=== PATIENT | male | born 1955 | race Caucasian/White ===

== ENCOUNTER → 2018-04-29 | Outpatient (CLI) | payer BC, MEDICARE, OTHER ==
[2018-04-30 07:38] LABS: BILIRUBIN,TOTAL 0.2 MG/DL (0.1-1.0); CALCIUM 9.1 MG/DL (8.5-10.1); CREATININE SERUM 8.54 MG/DL (0.60-1.30); POTASSIUM 4.4 MMOL/L (3.6-5.0)
[2018-04-30 07:39] LABS: ALBUMIN 3.8 GM/DL (3.2-4.5)
[2018-04-30 07:42] LABS: HEMATOCRIT 42 % (40-54); HEMOGLOBIN 13.3 G/DL (13.3-17.7); MEAN CORPUSCULAR HEMOGLOBIN 31 PG (25-34); MEAN CORPUSCULAR VOLUME 98 FL (80-99); WHITE BLOOD COUNT 12.6 10^3/uL (4.3-11.0)
[2018-04-30 07:43] LABS: BAND NEUTROPHILS 4 %; BASOPHILS # (AUTO) 0.1 10^3/uL (0.0-0.1); BASOPHILS % (AUTO) 0 % (0-10); BASOPHILS % (MANUAL) 0 %; EOSINOPHILS # (AUTO) 0.1 10^3/uL (0.0-0.3); EOSINOPHILS % (AUTO) 1 % (0-10); EOSINOPHILS % (MANUAL) 0 %; LYMPHOCYTES # (AUTO) 1.1 X 10^3 (1.0-4.0); LYMPHOCYTES % (AUTO) 9 % (12-44); LYMPHOCYTES % (MANUAL) 13 %; MEAN CORPUSCULAR HGB CONC 31 G/DL (32-36); MEAN PLATELET VOLUME 9.1 FL (7.4-10.4); MONOCYTES # (AUTO) 1.1 X 10^3 (0.0-1.0); MONOCYTES % (AUTO) 9 % (0-12); MONOCYTES % (MANUAL) 10 %; MYELOCYTES % 1 %; NEUTROPHILS % (AUTO) 79 % (42-75); NEUTROPHILS % (MANUAL) 72 %; PLATELET COUNT 264 10^3/uL (130-400); RBC MORPH NORMAL; RED CELL DISTRIBUTION WIDTH 14.5 % (10.0-14.5)
== END ==
LOC: LAB 17:02
PROVIDERS: ATTEND Urology
DX: D86.0 Sarcoidosis of lung (principal)
CPT/HCPCS: 36415; 80053; 84436; 84443; 85007; 85027

== ENCOUNTER 2018-07-04 22:05 | Emergency (ER) | payer MEDICARE ==
[~2018-07-04] VITALS: Ht 172.7 cm; Wt 50.3 kg
--- NOTE | 2018-07-04 22:25 | ED General ---
General Chief Complaint: General Problems/Pain Stated Complaint: LEG PAIN Source of Information: Patient, EMS, Spouse History of Present Illness Date Seen by Provider: Jul 04, 2018 Time Seen by Provider: 22:25 Initial Comments 63-year-old male presenting by EMS from home. He has been feeling sick today and having increased leg pain. He has chronic leg pain but feels that it was worse today. He also has been having palpitations especially whenever he tries to move around. He's been feeling more short of breath today. He has been doing peritoneal dialysis and typically does that 16 hours a day. He has not been able to complete that today because he was feeling so bad he called EMS. He also feels more nauseated than usual. All of his health care providers are primarily out of the [facility]. He denies having any fever or chills. He denies having any chest pains with the palpitations. Allergies and Home Medications Allergies Coded Allergies: doxycycline (Verified Allergy, Unknown, 07/04/18) levofloxacin (Verified Allergy, Unknown, 07/04/18) Patient Home Medication List Home Medication List Reviewed: Yes Review of Systems Review of Systems Constitutional: No chills, No fever; malaise, weakness EENTM: no symptoms reported Respiratory: short of breath (more short of breath than normal.) Cardiovascular: see HPI; No chest pain, No edema; palpitations Gastrointestinal: No abdominal pain; nausea, vomiting Genitourinary: no symptoms reported (on dialysis so he doesn't make hardly any urine) Musculoskeletal: see HPI, muscle pain (chronic bilateral leg pain) Skin: no symptoms reported Psychiatric/Neurological: Anxiety Past Cmwewmq-Qqgtfu-Flbsiq Hx Past Med/Social Hx: Reviewed Nursing Past Med/Soc Hx Patient Social History Alcohol Use: Denies Use Recreational Drug Use: No Smoking Status: Never a Smoker 2nd Hand Smoke Exposure: No Recent Foreign Travel: No Contact w/Someone Who Travel: No Physical Abuse: No Sexual Abuse: No Mistreated: No Fear: No Physical Exam Vital Signs Vital Signs - First Documented 07/04/18 07/04/18 22:23 23:05 Temp 98.3 Pulse 125 B/P (MAP) 126/72 (90) Pulse Ox 0 O2 Delivery Room Air O2 Flow Rate 2.50 Capillary Refill : Height, Weight, BMI Height: '" Weight: lbs. oz. kg; BMI Method: General Appearance: Anxious, Moderate Distress HEENT: PERRL/EOMI, Pharynx Normal Neck: Non Tender, Supple Respiratory: Chest Non Tender, Decreased Breath Sounds, Rales (in the bases) Cardiovascular: Irregularly Irregular, Tachycardia Gastrointestinal: Normal Bowel Sounds, No Pulsatile Mass, Non Tender, Soft Rectal: Deferred Extremity: Normal Range of Motion, No Pedal Edema, Slow Capillary Refill, Other (tenderness to bilateral lower extremities) Neurologic/Psychiatric: Alert, Oriented x3 Skin: Cool; No Cyanosis, No Diaphoresis, No Erythema, No Mottled; Pallor Focused Exam Sepsis Stage: Sepsis Possible Source: Other (Pulmonary with cough and SOA, intra-abdominal with chronic peritoneal dialysis) Lactate Level 07/05/18 00:25: Lactic Acid Level 2.78*H Time of Focused Exam: 00:20 Respiratory: Chest Non Tender, No Accessory Muscle Use, No Respiratory Distress , Crackles, Decreased Breath Sounds Cardiovascular: Tachycardia Capillary Refill: Less Than 3 Seconds Peripheral Pulses: 1+ Radial Pulses (R), 1+ Radial Pulses (L) Skin: pallor Lactic Acid Level Laboratory Tests Test 07/05/18 00:25 Lactic Acid Level 2.78 MMOL/L (0.50-2.00) *H Within 3hrs of presentation: Admin fluids, Admin ABX, Blood cultures prior to ABX's, Focus exam, Lactate level, Other (due to dialysis pt and renal failure will give 500 mL fluid bolus x 2) Progress/Results/Core Measures Suspected Sepsis Recent Fever Within 48 Hours: No Infection Criteria Present: Suspected New Infection New/Unexplained Altered Menta: No Within 3hrs of presentation: Admin fluids, Admin ABX, Blood cultures prior to ABX's, Lactate level SIRS Temperature: Pulse: Respiratory Rate: Laboratory Tests 07/04/18 23:00: White Blood Count 32.4*H Blood Pressure / Mean: 07/05/18 00:25: Lactic Acid Level 2.78*H Laboratory Tests 07/04/18 23:00: Creatinine 7.19H, INR Comment 1.2, Platelet Count 191, Total Bilirubin 0.7 Results/Orders Lab Results Laboratory Tests Test 07/04/18 23:00 07/05/18 00:25 Range/Units White Blood Count 32.4 *H 4.3-11.0 10^3/uL Red Blood Count 4.37 4.35-5.85 10^6/uL Hemoglobin 13.3 13.3-17.7 G/DL Hematocrit 41 40-54 % Mean Corpuscular Volume 93 80-99 FL Mean Corpuscular Hemoglobin 30 25-34 PG Mean Corpuscular Hemoglobin Concent 33 32-36 G/DL Red Cell Distribution Width 14.4 10.0-14.5 % Platelet Count 191 130-400 10^3/uL Mean Platelet Volume 9.1 7.4-10.4 FL Neutrophils (%) (Auto) 88 H 42-75 % Lymphocytes (%) (Auto) 5 L 12-44 % Monocytes (%) (Auto) 7 0-12 % Eosinophils (%) (Auto) 0 0-10 % Basophils (%) (Auto) 0 0-10 % Neutrophils # (Auto) 28.5 H 1.8-7.8 X 10^3 Lymphocytes # (Auto) 1.5 1.0-4.0 X 10^3 Monocytes # (Auto) 2.3 H 0.0-1.0 X 10^3 Eosinophils # (Auto) 0.0 0.0-0.3 10^3/uL Basophils # (Auto) 0.1 0.0-0.1 10^3/uL Neutrophils % (Manual) 75 % Lymphocytes % (Manual) 5 % Monocytes % (Manual) 6 % Eosinophils % (Manual) 1 % Metamyelocytes % 2 % Myelocytes % 2 % Band Neutrophils 9 % Platelet Estimate ADEQUATE Prothrombin Time 15.7 H 12.2-14.7 SEC INR Comment 1.2 0.8-1.4 Activated Partial Thromboplast Time 29 24-35 SEC Sodium Level 132 L 135-145 MMOL/L Potassium Level 4.3 3.6-5.0 MMOL/L Chloride Level 82 L 98-107 MMOL/L Carbon Dioxide Level 20 L 21-32 MMOL/L Anion Gap 30 H 5-14 MMOL/L Blood Urea Nitrogen 71 H 7-18 MG/DL Creatinine 7.19 H 0.60-1.30 MG/DL Estimat Glomerular Filtration Rate 8 BUN/Creatinine Ratio 10 Glucose Level 90 70-105 MG/DL Calcium Level 10.2 H 8.5-10.1 MG/DL Corrected Calcium 10.7 H 8.5-10.1 MG/DL Magnesium Level 1.8 1.8-2.4 MG/DL Total Bilirubin 0.7 0.1-1.0 MG/DL Aspartate Amino Transf (AST/SGOT) 31 5-34 U/L Alanine Aminotransferase (ALT/SGPT) 42 0-55 U/L Alkaline Phosphatase 132 40-136 U/L Troponin T 394 *H <=15 NG/L Pro-B-Type Natriuretic Peptide 44582.0 H <75.0 PG/ML Total Protein 7.2 6.4-8.2 GM/DL Albumin 3.4 3.2-4.5 GM/DL Lipase 17 8-78 U/L Arterial Blood Partial Pressure CO2 59 H 35-45 MMHG Arterial Blood Partial Pressure O2 12 *L 79-93 MMHG Arterial Blood HCO3 32 H 23-27 MMOL/L Arterial Blood Oxygen Saturation 11 L 94-100 % Arterial Blood Base Excess 4.5 H -2.5-2.5 MMOL/L Blood Gas Inspired Oxygen NASAL CAN Lactic Acid Level 2.78 *H 0.50-2.00 MMOL/L My Orders Orders - KRISTOPHER TORRES MD Cbc With Automated Diff (07/04/18 22:46) Magnesium (07/04/18 22:46) Chest 1 View Ap/Pa Only (07/04/18 22:46) Ekg Tracing (07/04/18 22:46) Comprehensive Metabolic Panel (07/04/18 22:46) Protime With Inr (07/04/18 22:46) Partial Thromboplastin Time (07/04/18 22:46) O2 (07/04/18 22:46) Monitor-Rhythm Ecg Trace Only (07/04/18 22:46) Ed Iv/Invasive Line Start (07/04/18 22:46) Lipase (07/04/18 22:46) Probnp Fs (07/04/18 22:46) Amiodarone For Bolus (Cordarone Bolus) (07/04/18 23:00) Ns Iv 500 Ml (Sodium Chloride 0.9%) (07/04/18 22:46) Ondansetron Injection (Zofran Injectio (07/04/18 23:00) Arterial Blood Gas (07/04/18 22:52) Manual Differential (07/04/18 23:00) Blood Culture (07/05/18 00:04) Lactic Acid Analyzer (07/05/18 00:04) Troponin T (07/05/18 00:04) Oxycodone Immediate Rel Tablet (Oxyir Ta (07/05/18 00:30) Capillary Blood Gas (07/05/18 00:21) Ns Iv 500 Ml (Sodium Chloride 0.9%) (07/05/18 00:30) Amiodarone Injection (Cordarone Injectio (07/05/18 00:30) Vancomycin Injection (Vancomycin Injecti (07/05/18 00:30) Vancomycin Injection (Vancomycin Injecti (07/05/18 00:35) Ns (Ivpb) (Sodium Chloride 0.9%) (07/05/18 00:35) Medications Given in ED Current Medications Medications Dose Ordered Sig/Nelly Route Start Time Stop Time Status Last Admin Dose Admin Amiodarone HCl 150 mg/Dextrose 103 ml @ 600 mls/hr ONCE ONCE IV 07/04/18 23:00 07/04/18 23:10 DC 07/04/18 23:14 600 MLS/HR Ondansetron HCl 4 mg ONCE ONCE IVP 07/04/18 23:00 07/04/18 23:01 DC 07/04/18 23:14 4 MG Oxycodone HCl 5 mg ONCE ONCE PO 07/05/18 00:30 07/05/18 00:31 DC 07/05/18 00:24 5 MG Vital Signs/I&O 07/04/18 07/04/18 22:23 23:05 Temp 98.3 Pulse 125 B/P (MAP) 126/72 (90) Pulse Ox 0 O2 Delivery Room Air Nasal Cannula O2 Flow Rate 2.50 Capillary Refill : Progress Note #1: Time: 23:00 Progress Note Check labs and chest x-ray as well as electrocardiogram. Will give him a 500 ML normal saline bolus. Since his heart rate seems to be going in and out of A. fib with RVR and at times just tonight sinus tachycardia see how he responds to the IV fluid bolus of 500 ML's normal saline but will also give him a loading dose of amiodarone. Since he has chronic hypotension will avoid blood pressure lowering medications for now. Progress Note #2: Time: 00:20 Progress Note Discussed with his transfer center and initiated the process to have the patient transferred. Reviewed the initial results with the patient and family. His white blood cell count is elevated over 32,000 and he has a left shift. Concerning for infection in addition to his atrial fibrillation with RVR and sinus tachycardia. He is fluctuating between the two rhythms. The IV fluid bolus and amiodarone had helped with his atrial fibrillation with RVR. He now is not shooting to the 170-180 range. Will add on blood cultures and a lactic acid. We'll also plan on trying to obtain a blood gas to see if the oxygen saturation could be obtained. His chest x-ray showed diffuse pulmonary edema consistent with his renal failure and fluid overload. It certainly is possible that he could have an infiltrate hidden within normal that on his chest x-ray. He was not having particular abdominal tenderness to consider peritonitis but that certainly is potential diagnosis as well since he has a peritoneal dialysis catheter. He did not describe having any discolored drainage or fluid from the dialysis catheter recently. He was also asking for something for the leg pain that he was experiencing. I told him with his low blood pressure I was not comfortable giving him any IV medicine but I would give him a single pain pill and he stated that in the past oxycodone had helped. Progress Note #3: Time: 00:33 Progress Note d/w Dr. Garza from ICU staff at [facility] and he accepted the patient to . He did feel the patient would need the amiodarone as a drip as well as he requested vancomycin and Zosyn for potential sepsis treatment. Progress Note #4: Time: 01:05 Progress Note Lactic acid as well as troponin T are both elevated. In light of his chronic renal failure and elevated BMP is also present his troponin was elevated. He has had no chest pain but he also has been running heart rates up into the 180s at times. His potassium and electrolytes appear stable outside of his chronic renal failure. Continue with the second 500 ML normal saline bolus. His amiodarone drip was also ordered. His vancomycin 1 g was ordered and is infusing. [facility] called back and he does have a Room in [facility] at [phone]. His blood pressure and circulation are responding to treatment. Before transfer he had BP up to 92/42. ECG Initial ECG Impression Date: Jul 04, 2018 Initial ECG Impression Time: 22:47 Initial ECG Rate: 123 Initial ECG Rhythm: S.Tach Initial ECG Comparisson: No Previous ECG Available Comment Sinus tachycardia with premature atrial and ventricular complexes. Flipped T waves in lateral leads. Heart rate of 123 bpm. NC interval 142 ms. QT interval of 302 ms and QT corrected interval of [address] elevation. No prior tracing for comparison. Diagnostic Imaging Diagonstic Imaging: Xray Plain Films/CT/US/NM/MRI: chest Comments On my review of his 1 view chest x-ray she has diffuse pulmonary interstitial edema consistent with his renal failure and heart failure. He does have cardiomegaly. There is no definite infiltrate but certainly he could have an infiltrate mixed in with his pulmonary edema. Reviewed: Reviewed by Me Critical Care Note Critical Care Total Time (minutes) 60 minutes Progress 60 minutes of critical care time was spent in direct care of the patient. This time was excluding separately billable procedures. Time was spent in obtaining history from patient and spouse, ordering tests and reviewing results, ordering interventions and reviewing response, reviewing old records, discussion with consultants, and documentation of the chart. Departure Impression Primary Impression: Atrial fibrillation with rapid ventricular response Additional Impressions: Elevated white blood cell count, unspecified Qualified Codes: D72.829 - Elevated white blood cell count, unspecified Hypotension Qualified Codes: I95.9 - Hypotension, unspecified Fluid overload, unspecified Qualified Codes: E87.70 - Fluid overload, unspecified Sepsis Qualified Codes: A41.9 - Sepsis, unspecified organism Disposition: 02 XFER SHT-TRM HOSP Condition: Stable Transfer Time Spoke to Accepting Phy: 00:05 Transfer Progress Notes Spoke with VANESA Bravo, at the transfer center for and she got me in touch with Dr Garza from the ICU at [facility]. He accepted the patient in transfer but did request the pt have blood cultures and lactic acid with his elevated WBC. He may have sepsis and requested the patient have fluids and try to get BP up around 90 to 100 since he has 100 to 120 systolic pressures in clinic visits recently at . Will give Vancomycin after blood cultures and lactic acid are drawn. if he is still here will add in zosyn as well. Transfer Facility: [facility] Method of Transfer: EMS Departure-Patient Inst. Referrals: BHUPINDER MENON MD (PCP/Family) Primary Care Physician KRISTOPHER TORRES MD Jul 04, 2018 22:25
[2018-07-04] MEDS ORDERED: NS IV 500 ML 500 ML IV STA (22:46)
[2018-07-04] MEDS ORDERED: AMIODARONE FOR BOLUS 150 MG in D5W 100 ML IVPB 100 ML IV ONE (23:00)
[2018-07-04] MEDS ORDERED: ONDANSETRON 4 MG/2 ML (SDV) Z0FRAN IVP ONE (23:00)
[2018-07-04 23:49] LABS: HEMATOCRIT 41 % (40-54); HEMOGLOBIN 13.3 G/DL (13.3-17.7); MEAN CORPUSCULAR HEMOGLOBIN 30 PG (25-34); MEAN CORPUSCULAR HGB CONC 33 G/DL (32-36); MEAN CORPUSCULAR VOLUME 93 FL (80-99); MEAN PLATELET VOLUME 9.1 FL (7.4-10.4); PLATELET COUNT 191 10^3/uL (130-400); RED CELL DISTRIBUTION WIDTH 14.4 % (10.0-14.5)
[2018-07-04 23:50] LABS: BASOPHILS % (AUTO) 0 % (0-10); EOSINOPHILS % (AUTO) 0 % (0-10); LYMPHOCYTES # (AUTO) 1.5 X 10^3 (1.0-4.0); LYMPHOCYTES % (AUTO) 5 % (12-44); MONOCYTES % (AUTO) 7 % (0-12); NEUTROPHILS % (AUTO) 88 % (42-75)
[2018-07-04 23:51] LABS: BASOPHILS # (AUTO) 0.1 10^3/uL (0.0-0.1); MONOCYTES # (AUTO) 2.3 X 10^3 (0.0-1.0)
[2018-07-04 23:53] LABS: WHITE BLOOD COUNT 32.4 10^3/uL (4.3-11.0)
[2018-07-04 23:54] LABS: NEUTROPHILS # (AUTO) 28.5 X 10^3 (1.8-7.8)
[2018-07-05 00:02] LABS: BAND NEUTROPHILS 9 %; EOSINOPHILS % (MANUAL) 1 %; LYMPHOCYTES % (MANUAL) 5 %; METAMYELOCYTES % 2 %; MONOCYTES % (MANUAL) 6 %; MYELOCYTES % 2 %; NEUTROPHILS % (MANUAL) 75 %; PLATELET ESTIMATE ADEQUATE
[2018-07-05 00:03] LABS: INR 1.2 (0.8-1.4); PROTHROMBIN TIME PATIENT 15.7 SEC (12.2-14.7)
[2018-07-05 00:05] LABS: POTASSIUM 4.3 MMOL/L (3.6-5.0)
[2018-07-05 00:06] LABS: ALBUMIN 3.4 GM/DL (3.2-4.5); BILIRUBIN,TOTAL 0.7 MG/DL (0.1-1.0); CALCIUM 10.2 MG/DL (8.5-10.1); CREATININE SERUM 7.19 MG/DL (0.60-1.30); MAGNESIUM 1.8 MG/DL (1.8-2.4); TOTAL PROTEIN 7.2 GM/DL (6.4-8.2)
[2018-07-05] MEDS ORDERED: AMIODARONE INJECTION 450 MG in D5W IV SOLUTION (EXCEL) 250 ML IV STA (00:30)
[2018-07-05] MEDS ORDERED: NS IV 500 ML 500 ML IV STA (00:30)
[2018-07-05] MEDS ORDERED: VANCOMYCIN INJECTION 1,000 MG in NS (IVPB) 250 ML IV STA (00:30)
[2018-07-05] MEDS ORDERED: NS (IVPB) 250 ML ONE (00:35)
[2018-07-05] MEDS ORDERED: VANCOMYCIN 1000 MG/VIAL ONE (00:35)
[2018-07-05 01:18] LABS: ABG BASE EXCESS 4.5 MMOL/L (-2.5-2.5); INSPIRED O2 NASAL CAN
[2018-07-05 01:19] LABS: ABG OXYGEN SATURATION 11 % (94-100); ABG PCO2 59 MMHG (35-45)
[2018-07-05 01:25] LABS: ABG PO2 12 MMHG (79-93)
[2018-07-05 01:28] VITALS: BP 92/55
--- NOTE | 2018-07-05 07:26 | Diagnostic Imaging Report ---
INDICATION: Shortness of breath and heart palpitations. COMPARISON: 04/24/2009. FINDINGS: Patchy airspace consolidations are present in the bilateral perihilar and basilar aspects of the lungs. Potential trace bilateral pleural effusions. No pneumothorax. The cardiac silhouette is enlarged. IMPRESSION: 1. Imaging features are most suggestive of congestive heart failure. However, pulmonary hemorrhage or multifocal infection could have this appearance in the appropriate setting. Dictated by: Dictated on workstation # [id number]
[2018-07-05 08:46] LABS: CAPILLARY BLOOD PH 7.34 (7.37-7.43)
== END 2018-07-05 01:28 | disposition short-term general hospital (02) ==
LOC: EDUNIT# 22:05 → ER FS 22:10
DX: I48.91 Unspecified atrial fibrillation (principal); R03.0 Elevated blood-pressure reading, without diagnosis of hypertension; A41.9 Sepsis, unspecified organism; E87.70 Fluid overload, unspecified; I95.9 Hypotension, unspecified; Z88.1 Allergy status to other antibiotic agents; Z88.8 Allergy status to other drugs, medicaments and biological substances
CPT/HCPCS: 36415; 71045; 80053; 82803; 83605; 83690; 83735; 83880; 84484; 85007; 85027; 85610; 85730; 87040; 93041

== ENCOUNTER → 2018-07-19 | Emergency (ER) | payer MEDICARE, OTHER ==
[~2018-07-19] VITALS: Ht 172.7 cm; Wt 51.7 kg
[~2018-07-19] MED LIST: ATROPINE INJECTION 1 MG/10 ML SYR (ABBOTT) INJ ONE; CATHETER FLUSH 10 ML SYR IV ONE; EPINEPHrine 0.1 MG/ML 10 ML (HOSPIRA) SYR IJ ONE; EPINEPHrine INJECTION 1 MG/ML AMP ONE; NOREPINEPHRINE 4 MG/4 ML (LEVOPHED) AMP IV ONE; NS (IVPB) 250 ML ONE; NS IV 1000 ML 1,000 ML IV PRN; NS IV 1000 ML 1,000 ML ONE; PIPERACILLIN/TAZO 4.5 GM VIAL (ZOSYN) IV ONE; PIPERACILLIN/TAZOBACTAM (BULK) 4.5 GM in NS (IVPB) 100 ML IV ONE; VANCOMYCIN INJECTION 1,000 MG in NS (IVPB) 250 ML IV SCH
[2018-07-19 03:30] VITALS: BP 103/42
[2018-07-19 04:00] VITALS: BP 63/38
[2018-07-19 04:01] LABS: WHITE BLOOD COUNT 15.9 10^3/uL (4.3-11.0)
[2018-07-19 04:02] LABS: BASOPHILS % (AUTO) 0 % (0-10); EOSINOPHILS % (AUTO) 0 % (0-10); HEMATOCRIT 33 % (40-54); HEMOGLOBIN 10.2 G/DL (13.3-17.7); LYMPHOCYTES % (AUTO) 3 % (12-44); MEAN CORPUSCULAR HEMOGLOBIN 30 PG (25-34); MEAN CORPUSCULAR HGB CONC 31 G/DL (32-36); MEAN CORPUSCULAR VOLUME 97 FL (80-99); MEAN PLATELET VOLUME 10.2 FL (7.4-10.4); MONOCYTES % (AUTO) 3 % (0-12); NEUTROPHILS # (AUTO) 13.9 X 10^3 (1.8-7.8); PLATELET COUNT 237 10^3/uL (130-400); RED CELL DISTRIBUTION WIDTH 14.6 % (10.0-14.5)
[2018-07-19 04:05] LABS: BASOPHILS # (AUTO) 0.1 10^3/uL (0.0-0.1); LYMPHOCYTES # (AUTO) 0.4 X 10^3 (1.0-4.0); MONOCYTES # (AUTO) 0.5 X 10^3 (0.0-1.0)
[2018-07-19 04:06] LABS: NEUTROPHILS % (AUTO) 94 % (42-75)
[2018-07-19 04:17] LABS: BAND NEUTROPHILS 17 %; LYMPHOCYTES % (MANUAL) 4 %; MONOCYTES % (MANUAL) 5 %; NEUTROPHILS % (MANUAL) 69 %
[2018-07-19 04:18] LABS: BASOPHILS % (MANUAL) 0 %; EOSINOPHILS % (MANUAL) 0 %; METAMYELOCYTES % 2 %; MYELOCYTES % 2 %; PLATELET ESTIMATE ADEQUATE; PROMYELOCYTES % 1 %
[2018-07-19 04:30] VITALS: BP 70/52
[2018-07-19 04:36] LABS: BUN/CREATININE RATIO 7; CARBON DIOXIDE 16 MMOL/L (21-32); CHLORIDE 79 MMOL/L (98-107); GFR ESTIMATED 10; SODIUM 123 MMOL/L (135-145)
[2018-07-19 04:37] LABS: CREATININE SERUM 5.76 MG/DL (0.60-1.30); GLUCOSE 171 MG/DL (70-105)
[2018-07-19 04:38] LABS: ALANINE AMINOTRANSFERASE 40 U/L (0-55); ALKALINE PHOSPHATASE 179 U/L (40-136); BILIRUBIN,TOTAL 0.3 MG/DL (0.1-1.0)
[2018-07-19 04:39] LABS: ALBUMIN 2.3 GM/DL (3.2-4.5); TOTAL PROTEIN 6.2 GM/DL (6.4-8.2)
[2018-07-19 04:53] LABS: MAGNESIUM 1.9 MG/DL (1.8-2.4)
[2018-07-19 05:00] VITALS: BP 65/30
--- NOTE | 2018-07-19 05:05 | ED Respiratory ---
General Chief Complaint: Respiratory Problems Stated Complaint: NAUSEA/VOMITTING Nursing Triage Note: states pt has had emesis tonight, pt is worried about aspiration, states she is worried about pt being constipated. pt discharged from Thursday and has not had a bowel movement since Source: patient, family, EMS, RN notes reviewed, old records Exam Limitations: clinical condition History of Present Illness Date Seen by Provider: July 19, 2018 Time Seen by Provider: 02:34 Initial Comments Patient presents via EMS c/ c/o vomiting this PM. Apparently some concern he might of aspirated. Does seem to be somewhat SOA @ this time. is concerned he may be constipated in that he hasn't had a BM since being discharged from [facility] on Thursday p/ being transferred there from here back on 07/06. Patient well known to this department. Is chronically ill. Patient performs peritoneal dialysis on himself daily secondary to ESRD. Timing/Duration: this evening Severity: moderate Prior Episodes/Possible Cause: frequent episodes Modifying Factors: Improves With Other (none) Associated Symptoms: denies symptoms (x/ as noted. ), shortness of breath Allergies and Home Medications Allergies Coded Allergies: doxycycline (Verified Allergy, Unknown, 07/04/18) levofloxacin (Verified Allergy, Unknown, 07/04/18) Patient Home Medication List Home Medication List Reviewed: Yes Review of Systems Review of Systems Constitutional: see HPI Respiratory: see HPI, short of breath Gastrointestinal: see HPI, vomiting All Other Systems Reviewed Negative Unless Noted: Yes (Negative excepted noted.) Past Zhyahyh-Qvmeac-Lhzdee Hx Patient Social History Alcohol Use: Denies Use Recreational Drug Use: No 2nd Hand Smoke Exposure: No Recent Foreign Travel: No Contact w/Someone Who Travel: No Recent Infectious Disease Expo: No Recent Hopitalizations: No Physical Abuse: No Sexual Abuse: No Mistreated: No Fear: No Seasonal Allergies Seasonal Allergies: No Past Medical History Surgeries: Yes Dialysis Respiratory: Yes (sarcoidosis) Cardiac: Yes Hypotension, Irregular Heartbeat, Peripheral Vascular Neurological: No Genitourinary: No Gastrointestinal: No Musculoskeletal: No Endocrine: No HEENT: No Cancer: No Psychosocial: No Integumentary: No Blood Disorders: Yes Physical Exam Vital Signs - First Documented 07/19/18 07/19/18 02:34 03:30 Temp 96.4 Pulse 110 Resp 27 B/P (MAP) 99/35 (56) Pulse Ox 94 O2 Delivery Nasal Cannula O2 Flow Rate 5.00 Capillary Refill : Greater Than 3 Seconds Height: 5'8.00" Weight: 114lbs. oz. [id number]; BMI Method:Stated General Appearance: mild distress, thin Respiratory: respiratory distress, crackles Cardiovascular: tachycardia Neurologic/Psychiatric: no motor/sensory deficits, depressed affect, other ( somewhat somnolent but does wake up and follow commands and answer ?'s appropriately. ) Skin: warm/dry Focused Exam Lactate Level 07/19/18 03:45: Lactic Acid Level 5.32*H 07/19/18 05:45: Lactic Acid Level 5.75*H Lactic Acid Level Laboratory Tests Test 07/19/18 03:45 07/19/18 05:45 Lactic Acid Level 5.32 MMOL/L (0.50-2.00) *H 5.75 MMOL/L (0.50-2.00) *H Procedures/Interventions Date of ETT Placement: July 19, 2018 Time of ETT Placement: 06:35 Intubation Method: orotracheal Positive End Tide CO2: Yes Breath Sounds after Intubation: bilateral-equal Intubation Complications: no complications Post Intubation Xray: Yes Progress/Results/Core Measures Suspected Sepsis Recent Fever Within 48 Hours: No Infection Criteria Present: None New/Unexplained Altered Menta: No Sepsis Screen: No Definite Risk SIRS Temperature:96.4 Pulse: 110 Respiratory Rate: 27 Laboratory Tests 07/19/18 03:45: White Blood Count 15.9H Blood Pressure 99 /35 Mean: 56 07/19/18 03:45: Lactic Acid Level 5.32*H 07/19/18 05:45: Lactic Acid Level 5.75*H Laboratory Tests 07/19/18 03:45: Creatinine 5.76H, Platelet Count 237, Total Bilirubin 0.3 Results/Orders Lab Results Laboratory Tests Test 07/19/18 03:45 07/19/18 05:45 Range/Units White Blood Count 15.9 H 4.3-11.0 10^3/uL Red Blood Count 3.37 L 4.35-5.85 10^6/uL Hemoglobin 10.2 L 13.3-17.7 G/DL Hematocrit 33 L 40-54 % Mean Corpuscular Volume 97 80-99 FL Mean Corpuscular Hemoglobin 30 25-34 PG Mean Corpuscular Hemoglobin Concent 31 L 32-36 G/DL Red Cell Distribution Width 14.6 H 10.0-14.5 % Platelet Count 237 130-400 10^3/uL Mean Platelet Volume 10.2 7.4-10.4 FL Neutrophils (%) (Auto) 94 H 42-75 % Lymphocytes (%) (Auto) 3 L 12-44 % Monocytes (%) (Auto) 3 0-12 % Eosinophils (%) (Auto) 0 0-10 % Basophils (%) (Auto) 0 0-10 % Neutrophils # (Auto) 13.9 H 1.8-7.8 X 10^3 Lymphocytes # (Auto) 0.4 L 1.0-4.0 X 10^3 Monocytes # (Auto) 0.5 0.0-1.0 X 10^3 Eosinophils # (Auto) 0.0 0.0-0.3 10^3/uL Basophils # (Auto) 0.1 0.0-0.1 10^3/uL Neutrophils % (Manual) 69 % Lymphocytes % (Manual) 4 % Monocytes % (Manual) 5 % Eosinophils % (Manual) 0 % Basophils % (Manual) 0 % Metamyelocytes % 2 % Myelocytes % 2 % Promyelocytes % 1 % Band Neutrophils 17 % Platelet Estimate ADEQUATE Sodium Level 123 *L 135-145 MMOL/L Potassium Level 4.0 3.6-5.0 MMOL/L Chloride Level 79 L 98-107 MMOL/L Carbon Dioxide Level 16 L 21-32 MMOL/L Anion Gap 28 H 5-14 MMOL/L Blood Urea Nitrogen 43 H 7-18 MG/DL Creatinine 5.76 H 0.60-1.30 MG/DL Estimat Glomerular Filtration Rate 10 BUN/Creatinine Ratio 7 Glucose Level 171 H 70-105 MG/DL Lactic Acid Level 5.32 *H 5.75 *H 0.50-2.00 MMOL/L Calcium Level 9.0 8.5-10.1 MG/DL Corrected Calcium 10.4 H 8.5-10.1 MG/DL Magnesium Level 1.9 1.8-2.4 MG/DL Total Bilirubin 0.3 0.1-1.0 MG/DL Aspartate Amino Transf (AST/SGOT) 31 5-34 U/L Alanine Aminotransferase (ALT/SGPT) 40 0-55 U/L Alkaline Phosphatase 179 H 40-136 U/L Troponin T 290 *H <=15 NG/L Pro-B-Type Natriuretic Peptide > 14103.0 H <75.0 PG/ML Total Protein 6.2 L 6.4-8.2 GM/DL Albumin 2.3 L 3.2-4.5 GM/DL My Orders Orders - JOHN BOYD DO Ct Abdomen/Pelvis Wo (07/19/18 02:31) Ct Chest Wo (07/19/18 02:31) Cbc With Automated Diff (07/19/18 02:31) Comprehensive Metabolic Panel (07/19/18 02:31) Probnp Fs (07/19/18 02:31) Troponin T (07/19/18 02:31) Lactic Acid Analyzer (07/19/18 02:31) Blood Culture (07/19/18 02:31) Ekg Tracing (07/19/18 02:34) Magnesium (07/19/18 02:35) Arterial Blood Gas (07/19/18 02:36) Piperacillin/Tazobactam (Bulk) (Zosyn In (07/19/18 04:00) Manual Differential (07/19/18 03:45) Ed Iv/Invasive Line Start (07/19/18 04:23) Ns Iv 1000 Ml (Sodium Chloride 0.9%) (07/19/18 04:23) Piperacillin Sodium/Tazobactam (Zosyn Vi (07/19/18 04:38) Vancomycin Injection (Vancomycin Injecti (07/19/18 05:45) Ns Iv 1000 Ml (Sodium Chloride 0.9%) (07/19/18 04:38) Norepinephrine (Levophed) (07/19/18 06:47) Ns (Ivpb) (Sodium Chloride 0.9%) (07/19/18 06:48) Epinephrine 1 Mg Injection (Adrenalin I (07/19/18 06:55) Ns (Ivpb) (Sodium Chloride 0.9%) (07/19/18 06:55) Chest 1 View Ap/Pa Only (07/19/18 07:02) Vital Signs/I&O 07/19/18 07/19/18 07/19/18 07/19/18 02:34 03:30 04:00 04:30 Temp 96.4 Pulse 110 103 102 102 Resp 27 31 33 33 B/P (MAP) 99/35 (56) 103/42 (62) 63/38 (46) 70/52 (58) Pulse Ox 94 91 89 90 O2 Delivery Nasal Cannula Nasal Cannula Nasal Cannula O2 Flow Rate 5.00 5.00 5.00 07/19/18 05:00 Pulse 101 Resp 32 B/P (MAP) 65/30 (42) Pulse Ox 85 O2 Flow Rate 5.00 Capillary Refill : Greater Than 3 Seconds Blood Pressure Mean: 56 Progress Note : Progress Note Had made arrangements to transfer the patient back to [facility], but as preparing to load him into the ambulance he was noted to no longer be awake, or responsive and was demonstrating agonal breathing. Then noted to be bradycardiac as well. Patient was given some Atropine in the ambulance and then transferred back into the ED where ACLS was started. Please refer to those records for specifics of the resuscitation efforts. Unfortunately, it became obvious the patient wasn't going to recover and was ultimately pronounced @ 07:09. ECG Initial ECG Impression Date: July 19, 2018 Initial ECG Rhythm: S.Tach Initial ECG Comparisson: Unchanged Diagnostic Imaging Diagonstic Imaging: CT Plain Films/CT/US/NM/MRI: chest (see report), abdomen, pelvis (see report) Departure Impression Primary Impression: Dyspnea Additional Impressions: Neutrophilic leukocytosis Lactic acidosis Suspected Aspiration pneumonia Dependence on peritoneal dialysis Hyponatremia Elevated troponin Elevated brain natriuretic peptide (BNP) level Disposition: 20 Condition: Departure-Patient Inst. Referrals: BHUPINDER MENON MD (PCP/Family) Primary Care Physician JOHN BOYD DO July 19, 2018 05:05
--- NOTE | 2018-07-19 07:17 | Diagnostic Imaging Report ---
PROCEDURE: CT abdomen and pelvis without contrast. TECHNIQUE: Multiple contiguous axial images were obtained through the abdomen and pelvis without the use of intravenous contrast. Auto Exposure Controls were utilized during the CT exam to meet ALARA standards for radiation dose reduction. INDICATION: Abdominal pain. Possible constipation. COMPARISON: None FINDINGS: For thoracic findings, please refer to concurrent CT of the chest. The liver demonstrates no focal lesions. There is significant motion artifact present. The spleen appears normal. The pancreas is unremarkable on this noncontrast exam. The adrenal glands appear normal. The kidneys are markedly atrophic with numerous small cysts present. There is extensive calcific atherosclerosis throughout the abdomen and pelvis. A small to moderate amount of ascites is present. A peritoneal catheter is seen. There is contrast seen in the colon. No dilated loops of small bowel are seen. There is mild prominence of the descending colon wall. There is no evidence of obstruction. There is no free air seen. No acute osseous abnormality seen. There is dense calcification at the origin of the left hamstring tendons. This may be due to a severe calcific tendinitis, but is greater than expected. IMPRESSION: 1. Motion artifact throughout the exam. There is mild prominence of the descending colon wall, may represent a colitis versus nondistention. 2. Extensive marked calcific atherosclerosis throughout the abdomen and pelvis. 3. Small to moderate amount of ascites with peritoneal catheter in place. 4. Markedly atrophic kidneys bilaterally. Dictated by: Dictated on workstation # [id number]
--- NOTE | 2018-07-19 07:21 | Diagnostic Imaging Report ---
PROCEDURE: CT chest without contrast. TECHNIQUE: Multiple contiguous axial images were obtained through the chest without the use of intravenous contrast. Auto Exposure Controls were utilized during the CT exam to meet ALARA standards for radiation dose reduction. INDICATION: Cough, shortness of breath, possible aspiration. COMPARISON: CT chest from 04/17/2009. FINDINGS: The heart is upper normal in size. There is no pericardial effusion. There are calcified lymph nodes in the mediastinum. There is extensive calcific atherosclerosis, particularly of the smaller vessels. There is respiratory motion artifact. There is moderate bronchiectasis in the lungs bilaterally, with central predominance, as well as predominance in the anterior left upper lobe. There are increased airspace opacities and scarring in the central lungs bilaterally. There are small bilateral pleural effusions, left greater than right. No pneumothorax is seen. No acute osseous abnormality is seen. For abdominal findings, please refer to separately dictated report. IMPRESSION: 1. Increased airspace opacities in the perihilar region and lower lobes bilaterally, may be due to infection or aspiration. 2. Significantly increased fibrosis and bronchiectasis bilaterally, with central and upper lobe predominance. 3. Minimal bilateral pleural effusions, left greater than right. Dictated by: Dictated on workstation # [id number]
--- NOTE | 2018-07-19 07:21 | Diagnostic Imaging Report ---
PATIENT HISTORY: Respiratory arrest. TECHNIQUE: Single frontal view of the chest COMPARISON: 07/04/2018 FINDINGS: The endotracheal tube is approximately 1 cm from the janis. There are interstitial and airspace opacities in the lungs bilaterally, including a reticular appearance which may be due to fibrosis. There is a minimal left pleural effusion. No pneumothorax is seen. There is mild cardiomegaly. IMPRESSION: 1. The endotracheal tube is approximately 1 cm above the janis. Consider at least 1 cm of retraction. 2. Chronic fibrotic changes as well as airspace opacities in the lungs bilaterally, may be due to superimposed infection or aspiration. Dictated by: Dictated on workstation # [id number]
--- NOTE | 2018-07-19 07:28 | NUR ---
0610-ems here for transfer to , loaded on cot and secured. 0620-ems taking pt to ambulance, pt respirations appeared diminished as ems passed by. This medical writer went to talk with DR Marquez, Dr Marquez taken to ambulance and pt was found to have a heart rate of 34, pt given 1 amp atropine per ems supply by this medical writer at 0625 and ems started bagging pt. pt removed from ambulance and taken back into ed. pt found to be bradycardic with a heart rate of 21 and no palpable pulses. 0633-cpr started and epi 1 mg given. 0635-sofya cpr device applied and pt intubated per Dr Marquez with co2 colormetric change, mist in the tube and bilateral breath sounds. etco2 applied with reading of 25. pt placed on vent tv-500, rate-12, o2-100% 0638-pt asystole, epi 1 mg given and cpr continued 0642-cpr stopped pt noted to have a bradycardic pulse at 45, atropine 1 mg given 0648 b/p 42/30, hr-80, levophed started at 0.1 mcg/kg/min 0652-pt bradycardic again hr-48, atropine 1 mg given 0655-pt asystole, sofya cpr device applied and epi 1 mg given 0658-epi gtt 2mg/250 ml started w/o 0709-pt remained pulseless/breathless with rythm checks code called per Dr Marquez 0712- at bedside and updated per Dr Marquez, all tubes and lines removed
--- NOTE | 2018-07-19 07:30 | NUR ---
chaplain Mihir supervisor [employer] contacted at this time. Mr. Porterwitt states will be in the ED in approximately 20 minutes.
--- NOTE | 2018-07-19 07:49 | NUR ---
0731: [facility] called at this time. Reference number of [id number] given. 0751: Per [facility], they would like saline in patient's eyes and patient transferred to the [facility] or a cooling blanket placed over his trunk after his leaves.
--- NOTE | 2018-07-19 07:50 | NUR ---
[employer] litigation coordinator in room with patient's at this time.
[2018-07-19 10:08] VITALS: BP 0/0
== END | disposition expired ==
LOC: EDUNIT# 02:13 → ER FS 02:16
DX: R06.00 Dyspnea, unspecified (principal); D72.829 Elevated white blood cell count, unspecified; N18.6 End stage renal disease; E87.1 Hypo-osmolality and hyponatremia; R79.89 Other specified abnormal findings of blood chemistry; I73.9 Peripheral vascular disease, unspecified; D86.9 Sarcoidosis, unspecified; Z99.2 Dependence on renal dialysis; Z88.1 Allergy status to other antibiotic agents; Z88.8 Allergy status to other drugs, medicaments and biological substances
CPT/HCPCS: 31500; 36415; 71045; 71250; 74176; 80053; 83605; 83735; 83880; 84484; 85007; 85027; 87040; 93005